=== PATIENT | male | born 1955 | race Caucasian/White ===

== ENCOUNTER 2019-10-07 13:31 | Inpatient (IN) | payer OTHER ==
[2019-10-07] MEDS ORDERED: Lactated Ringers 1,000 ML IV SCH (14:15)
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
[2019-10-07] MEDS ORDERED: LORazepam 2 MG/ML SDV IVPUSH PRN (17:40)
[2019-10-07] MEDS ORDERED: Ondansetron 4 MG/2 ML SDV IV PRN (17:40)
[2019-10-07] MEDS ORDERED: Ondansetron 4 MG Tab.DIS PO PRN (17:40)
[2019-10-07] MEDS: Lactated Ringers 1,000 ML IV SCH ×2 (17:45→22:22)
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
[2019-10-07] MEDS: LORazepam 2 MG/ML SDV IVPUSH PRN (18:00)
[2019-10-07] MEDS ORDERED: Nicotine 21 MG/24 Hr Patch TRDERM ONE (18:11)
[2019-10-07] MEDS: LORazepam 2 MG/ML SDV IVPUSH SCH ×7 (18:42→22:34)
[2019-10-08] MEDS: LORazepam 2 MG/ML SDV IVPUSH SCH ×2 (01:38→05:44)
[2019-10-08] MEDS: Lactated Ringers 1,000 ML IV SCH ×2 (03:24→17:16)
[2019-10-08] MEDS ORDERED: Magnesium Sulfate/Water 4 GM in Premix Bag 1 BAG IV ONE ×2 (07:51→09:30)
[2019-10-08] MEDS ORDERED: Enoxaparin 40 MG/0.4 ML Syringe SUBCUT SCH (09:00)
[2019-10-08] MEDS: LORazepam 2 MG/ML SDV IVPUSH PRN ×4 (09:00→20:48)
[2019-10-08] MEDS ORDERED: Thiamine 1,000 MG, Magnesium Sulfate 4 GM, Folic Acid 1 MG in Dextrose 5%-0.9% NaCl 1,0... IV SCH (09:00)
[2019-10-08] MEDS: Nicotine 21 MG/24 Hr Patch TRDERM SCH (09:28)
[2019-10-08] MEDS ORDERED: LORazepam 2 MG/ML SDV IVPUSH PRN ×2 (12:12→12:13)
[2019-10-08] MEDS: Potassium Chloride 20 MEQ Tab.ER PO SCH ×2 (17:20→20:45)
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
[2019-10-08] MEDS ORDERED: Diazepam 5 MG Tab PO ONE (20:54)
[2019-10-08] MEDS: Acetaminophen 325 MG Tab PO PRN (21:06)
[2019-10-09] MEDS: LORazepam 2 MG/ML SDV IVPUSH PRN ×6 (00:42→23:31)
[2019-10-09] MEDS: Acetaminophen 325 MG Tab PO PRN ×3 (03:19→16:27)
[2019-10-09] MEDS: Lactated Ringers 1,000 ML IV SCH (03:24)
[2019-10-09] MEDS: Nicotine 21 MG/24 Hr Patch TRDERM SCH (09:29)
[2019-10-09] MEDS ORDERED: Diazepam 5 MG Tab PO SCH ×2 (10:49→11:00)
[2019-10-09] MEDS ORDERED: LORazepam 2 MG/ML SDV IVPUSH ONE (12:31)
[2019-10-09] MEDS: Sodium Chloride 3% 500 ML IV SCH (13:26)
[2019-10-09] MEDS ORDERED: Thiamine 1,000 MG, Magnesium Sulfate 4 GM, Folic Acid 1 MG in Dextrose 5%-0.9% NaCl 1,0... IV ONE (14:00)
[2019-10-09] MEDS ORDERED: LORazepam 2 MG/ML SDV IVPUSH PRN (15:34)
[2019-10-09] MEDS: LORazepam 2 MG/ML SDV IV SCH ×3 (16:09→20:49)
[2019-10-09] MEDS ORDERED: Acetaminophen 650 MG Supp ONE (23:42)
[2019-10-09] MEDS: Acetaminophen 650 MG Supp RECTAL PRN (23:45)
[2019-10-10] MEDS ORDERED: Sodium Chloride 0.9% 1,000 ML IV ONE (00:30)
[2019-10-10] MEDS ORDERED: Piperacillin/Tazobactam 4.5 GM in Sodium Chloride 0.9% 100 ML IV ONE (00:45)
[2019-10-10] MEDS: LORazepam 2 MG/ML SDV IVPUSH PRN ×2 (00:48→02:31)
[2019-10-10] MEDS ORDERED: Sodium Chloride 0.9% 1,000 ML IV SCH (01:30)
[2019-10-10] MEDS ORDERED: Sodium Chloride 0.9% 250 ML ONE (02:52)
[2019-10-10] MEDS ORDERED: Sodium Chloride 0.9% 50 ML ONE (02:52)
[2019-10-10] MEDS ORDERED: Etomidate 2 MG/ML 20 ML SDV IVPUSH ONE (03:00)
[2019-10-10] MEDS ORDERED: fentaNYL 2,500 MCG in Sodium Chloride 0.9% 200 ML IV SCH ×2 (03:00)
[2019-10-10] MEDS ORDERED: Midazolam 1 MG/ML 5 ML SDV ONE ×2 (03:00)
[2019-10-10] MEDS ORDERED: Succinylcholine 200 MG/10 ML MDV ONE (03:00)
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
[2019-10-10] MEDS: Midazolam 50 MG in Sodium Chloride 0.9% 40 ML IV SCH ×3 (03:24→14:29)
--- NOTE | 2019-10-10 03:25 | PCM.PRNOTE ---
- Free Text/Narrative Note: Endotracheal Intubation Date: 10/10/2019 Time: 02:56 Indication: Maintain airway in sedated patient Attending: So Benavidez MD A time-out was completed verifying correct patient, procedure, site, positioning , and special equipment if applicable. The patient was placed in a flat position. Sedation was obtained using Etomidate 20mg, and additionally with Succinylcholine 50mg. The patient was easily ventilated using an ambu bag. The MAC 4 BLADE was used and inserted into the oropharynx at which time there was a Grade 1 view of the vocal cords. A 7-persian endotracheal tube was inserted and visualized going through the vocal cords. The stylette was removed. Colorimetric change was visualized on the CO2 meter. Breath sounds were heard in both lung knight equally. The endotracheal tube was placed at 23 cm, measured at the teeth. A chest x-ray was ordered to assess for pneumothorax and verify endotracheal tube placement. Estimated Blood Loss: none The patient tolerated the procedure well and there were no complications.
[2019-10-10] MEDS ORDERED: fentaNYL 100 MCG/2 ML SDV ONE (03:41)
[2019-10-10] MEDS ORDERED: fentaNYL 100 MCG/2 ML SDV IVPUSH ONE (03:41)
[2019-10-10] MEDS: fentaNYL 2,500 MCG in Sodium Chloride 0.9% 200 ML IV SCH (04:33)
[2019-10-10] MEDS: Sodium Chloride 3% 500 ML IV SCH (07:04)
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
[2019-10-10] MEDS: Acetaminophen 650 MG Supp RECTAL PRN ×2 (07:21→14:19)
--- NOTE | 2019-10-10 08:29 | CR ---
Chest: Portable supine view of the chest was obtained. Comparison: No prior chest imaging is available. Focal density is noted within the right upper hilar region measuring 4.7 cm. Left lung is clear. Mild areas of atelectasis and scarring are seen within the right lung. Heart size and mediastinum are within normal limits for portable technique. Tip of endotracheal tube is satisfactory at the lower level of the clavicles. Nasogastric tube appears to be coiled within the hypopharynx. Impression: 1. Coiling of presumed nasogastric tube within the hypopharynx. Please correlate if NG tube has been placed. 2. Tip of endotracheal tube at the lower level of the clavicles in satisfactory position. 3. Difficult to exclude mass within the superior right hilar region. Chest CT recommended which should include contrast if patient's renal function is satisfactory. Diagnostic code #9 This report was dictated in [place] Standard Time I agree with preliminary report from [facility], finalized on 10/10/19, 4:56 AM Central Time
[2019-10-10] MEDS: Nicotine 21 MG/24 Hr Patch TRDERM SCH (09:25)
[2019-10-10] MEDS: Potassium Chloride 10 MEQ in Premix Bag 1 BAG IV SCH ×6 (09:26→15:33)
[2019-10-10] MEDS: Sodium Chloride 0.9% 1,000 ML IV SCH ×4 (09:27→23:27)
[2019-10-10] MEDS: Piperacillin/Tazobactam 4.5 GM in Sodium Chloride 0.9% 100 ML IV SCH ×2 (09:27→17:44)
[2019-10-10] MEDS: 50% Dextrose in Water 50 ML Syringe IVPUSH PRN (12:34)
[2019-10-10] MEDS: Pantoprazole 40 MG Vial IVPUSH SCH (17:42)
[2019-10-10] MEDS ORDERED: Magnesium Sulfate/Water 4 GM in Premix Bag 1 BAG IV ONE (18:22)
[2019-10-10] MEDS ORDERED: Potassium Phosphates 30 MMOLE in Sodium Chloride 0.9% 500 ML IV SCH (18:30)
[2019-10-10] MEDS ORDERED: Sodium Phosphate 30 MMOLE in Sodium Chloride 0.9% 250 ML IV ONE (18:45)
[2019-10-11] MEDS: 50% Dextrose in Water 50 ML Syringe IVPUSH PRN ×2 (00:28→23:12)
[2019-10-11] MEDS: Piperacillin/Tazobactam 4.5 GM in Sodium Chloride 0.9% 100 ML IV SCH ×3 (00:32→17:21)
[2019-10-11] MEDS: Midazolam 50 MG in Sodium Chloride 0.9% 40 ML IV SCH ×3 (00:42→16:34)
[2019-10-11] MEDS: LORazepam 2 MG/ML SDV IV SCH (03:47)
[2019-10-11] MEDS: Acetaminophen 650 MG Supp RECTAL PRN (04:08)
[2019-10-11] MEDS: Sodium Chloride 0.9% 1,000 ML IV SCH ×4 (04:26→19:38)
[2019-10-11] MEDS ORDERED: PHENobarbital Sodium 65 MG/ML SDV IVPUSH ONE (06:18)
[2019-10-11] MEDS ORDERED: Sodium Chloride 0.9% 1,000 ML IV ONE ×2 (07:08→09:37)
[2019-10-11] MEDS ORDERED: PHENOBARBITAL SODIUM IV ONE (08:30)
[2019-10-11] MEDS ORDERED: SODIUM CHLORIDE 0.9% IV ONE (08:30)
[2019-10-11] MEDS: Folic Acid 50 MG/10 ML MDV SUBCUT SCH (08:38)
[2019-10-11] MEDS: Thiamine 200 MG/2 ML MDV IVPUSH SCH (08:42)
[2019-10-11] MEDS: Nicotine 21 MG/24 Hr Patch TRDERM SCH (08:44)
[2019-10-11] MEDS: Pantoprazole 40 MG Vial IVPUSH SCH (08:49)
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
[2019-10-11] MEDS ORDERED: Sodium Phosphate 30 MMOLE in Sodium Chloride 0.9% 250 ML IV ONE ×2 (13:00→16:00)
[2019-10-11] MEDS: Potassium Chloride 10 MEQ in Premix Bag 1 BAG IV SCH ×5 (13:27→17:39)
[2019-10-11] MEDS: fentaNYL 2,500 MCG in Sodium Chloride 0.9% 200 ML IV SCH (15:37)
[2019-10-12] MEDS: Midazolam 50 MG in Sodium Chloride 0.9% 40 ML IV SCH ×5 (00:05→22:37)
[2019-10-12] MEDS: Piperacillin/Tazobactam 4.5 GM in Sodium Chloride 0.9% 100 ML IV SCH ×3 (00:09→16:53)
[2019-10-12] MEDS: Sodium Chloride 0.9% 1,000 ML IV SCH ×3 (00:10→09:46)
[2019-10-12] MEDS: Folic Acid 50 MG/10 ML MDV SUBCUT SCH (08:23)
[2019-10-12] MEDS: Nicotine 21 MG/24 Hr Patch TRDERM SCH (08:23)
[2019-10-12] MEDS: Pantoprazole 40 MG Vial IVPUSH SCH (08:23)
[2019-10-12] MEDS: Thiamine 200 MG/2 ML MDV IVPUSH SCH (08:23)
[2019-10-12] MEDS: LORazepam 2 MG/ML SDV IVPUSH PRN (08:24)
[2019-10-12] MEDS ORDERED: PHENobarbital 20 MG/5 ML Elixir ML (473 ML Bottle) PO SCH (09:00)
--- NOTE | 2019-10-12 09:31 | CR ---
Chest: Portable view of the chest was obtained. Comparison: Prior chest x-ray of 10/10/19. Tip of endotracheal tube lies slightly below the inferior clavicles in satisfactory position. Nasogastric tube is seen with tip lying within the stomach. Increased density within the right midlung is seen which is felt to be fairly stable from prior study when allowing for differences in expiration. Lung markings are diffusely increased on the left side and uncertain if current findings are due to worsening bronchitis, pulmonary vasculature or fluid overload. Heart size at the upper limits of normal. Impression: 1. Increasing left-sided perihilar markings. Differential as noted above. 2. Satisfactory position of endotracheal tube. Tip of nasogastric tube within the stomach. 3. Stable findings within the right chest when allowing for differences in inspiration. Diagnostic code #3 This report was dictated in [place] Standard Time
[2019-10-12] MEDS: fentaNYL 2,500 MCG in Sodium Chloride 0.9% 200 ML IV SCH (12:15)
[2019-10-12] MEDS: levETIRAcetam 500 MG in Sodium Chloride 0.9% 100 ML IV SCH (12:30)
[2019-10-12] MEDS ORDERED: Sodium Chloride 0.9% 1,000 ML IV ONE (12:35)
[2019-10-12] MEDS ORDERED: Sodium Chloride 0.9% 1,000 ML IV SCH (13:00)
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
[2019-10-12] MEDS: Dextrose 5%-0.9% NaCl 1,000 ML IV SCH (14:10)
[2019-10-13] MEDS: levETIRAcetam 500 MG in Sodium Chloride 0.9% 100 ML IV SCH ×2 (00:27→13:07)
[2019-10-13] MEDS: Piperacillin/Tazobactam 4.5 GM in Sodium Chloride 0.9% 100 ML IV SCH ×3 (00:55→17:29)
[2019-10-13] MEDS: Midazolam 50 MG in Sodium Chloride 0.9% 40 ML IV SCH ×2 (02:18→08:41)
[2019-10-13] MEDS: Dextrose 5%-0.9% NaCl 1,000 ML IV SCH (03:42)
[2019-10-13] MEDS: fentaNYL 2,500 MCG in Sodium Chloride 0.9% 200 ML IV SCH (06:46)
[2019-10-13] MEDS ORDERED: Magnesium Sulfate/Water 4 GM in Premix Bag 1 BAG IV SCH (07:30)
[2019-10-13] MEDS ORDERED: Potassium Phosphates 30 MMOLE in Sodium Chloride 0.9% 500 ML IV ONE (08:00)
[2019-10-13] MEDS: Pantoprazole 40 MG Vial IVPUSH SCH (08:23)
[2019-10-13] MEDS: Nicotine 21 MG/24 Hr Patch TRDERM SCH (08:23)
[2019-10-13] MEDS: Thiamine 200 MG/2 ML MDV IVPUSH SCH (08:23)
[2019-10-13] MEDS: Folic Acid 50 MG/10 ML MDV SUBCUT SCH (08:23)
--- NOTE | 2019-10-13 12:07 | CR ---
Chest: Frontal view of the chest was obtained utilizing portable technique. Comparison: Prior chest x-ray of 10/12/19. Findings within the chest appear fairly stable from previous exam. No appreciable change is seen. Satisfactory and stable position of nasogastric tube and endotracheal tube. Impression: 1. Stable chest x-ray from previous exam performed one day earlier. Diagnostic code #3 Study was dictated in [place] Standard Time
[2019-10-13] MEDS ORDERED: Magnesium Sulfate/Water 4 GM in Premix Bag 1 BAG IV ONE (14:00)
[2019-10-13] MEDS ORDERED: Furosemide 40 MG/4 ML VIAL IVPUSH ONE (17:30)
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
[2019-10-13] MEDS ORDERED: propofoL 100 ML IV SCH (17:45)
--- NOTE | 2019-10-13 20:27 | PCM.SN ---
- Free Text/Narrative Note: Called by nursing secondary to patient being accidentally extubated. Fortunately, patient is doing well post extubation. Patient is on 6 L nasal cannula with SPO2 of 96%. Post extubation ABG: pH 7.48, PCO2 43.3, PO2 83.0, HCO3 31.7. Respiratory rate of 17. Continue monitoring closely.
[2019-10-13] MEDS ORDERED: Metoprolol Tartrate 5 MG/5 ML SDV IVPUSH PRN (21:15)
[2019-10-13] MEDS ORDERED: Magnesium Sulfate/Water 2 GM in Premix Bag 1 BAG IV ONE (21:21)
[2019-10-14] MEDS: levETIRAcetam 500 MG in Sodium Chloride 0.9% 100 ML IV SCH ×2 (00:32→14:35)
[2019-10-14] MEDS: Piperacillin/Tazobactam 4.5 GM in Sodium Chloride 0.9% 100 ML IV SCH ×3 (01:01→17:05)
[2019-10-14] MEDS ORDERED: Potassium Phosphates 30 MMOLE in Sodium Chloride 0.9% 500 ML IV ONE (08:30)
[2019-10-14] MEDS: Folic Acid 50 MG/10 ML MDV SUBCUT SCH (08:55)
[2019-10-14] MEDS: Thiamine 200 MG/2 ML MDV IVPUSH SCH (08:56)
[2019-10-14] MEDS: Pantoprazole 40 MG Vial IVPUSH SCH (08:56)
[2019-10-14] MEDS: Nicotine 21 MG/24 Hr Patch TRDERM SCH (08:57)
--- NOTE | 2019-10-14 11:55 | CR ---
Chest: Portable view of the chest was obtained. Comparison: Prior chest x-ray of 10/13/19. Focal parenchymal density noted within the right midlung. Left lung is clear. Heart size and mediastinum are normal. Nasogastric tube remains. Endotracheal tube has been removed. Impression: 1. Focal density within the right midlung. Uncertain if this represents mass or represents persistent pneumonia or pleural thickening. Consider chest CT to further evaluate. 2. Removal of endotracheal tube. 3. Nasogastric tube remains. Diagnostic code #3 This report was dictated in [place] Standard Time
[2019-10-14] MEDS: Potassium Chloride 10 MEQ in Premix Bag 1 BAG IV SCH ×4 (13:04→16:14)
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
[2019-10-14] MEDS ORDERED: Sodium Phosphate 30 MMOLE in Sodium Chloride 0.9% 250 ML IV ONE (16:00)
[2019-10-14] MEDS ORDERED: Metoprolol Tartrate 5 MG/5 ML SDV IVPUSH ONE (16:05)
[2019-10-14] MEDS ORDERED: Metoprolol Tartrate 5 MG in Sodium Chloride 0.9% 50 ML IV PRN (20:15)
[2019-10-14] MEDS ORDERED: Metoprolol Tartrate 5 MG/5 ML SDV IVPUSH PRN (20:17)
[2019-10-14] MEDS: Acetaminophen 650 MG Supp RECTAL PRN (20:54)
[2019-10-15] MEDS: levETIRAcetam 500 MG in Sodium Chloride 0.9% 100 ML IV SCH (00:41)
[2019-10-15] MEDS: Piperacillin/Tazobactam 4.5 GM in Sodium Chloride 0.9% 100 ML IV SCH ×3 (00:58→16:57)
[2019-10-15] MEDS ORDERED: Magnesium Sulfate/Water 4 GM in Premix Bag 1 BAG IV ONE (08:16)
[2019-10-15] MEDS: Potassium Chloride 10 MEQ in Premix Bag 1 BAG IV SCH ×4 (08:41→11:51)
[2019-10-15] MEDS: Folic Acid 1 MG Tab PO SCH (08:47)
[2019-10-15] MEDS: Nicotine 21 MG/24 Hr Patch TRDERM SCH (08:48)
[2019-10-15] MEDS: Pantoprazole 40 MG Vial IVPUSH SCH (08:50)
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
[2019-10-15] MEDS: levETIRAcetam 500 MG Tab PO SCH ×2 (11:25→20:17)
--- NOTE | 2019-10-15 12:37 | CT ---
CT chest Technique: Multiple axial sections were obtained from above the lung apices inferiorly through the lung bases. Intravenous contrast was utilized. Comparison: Prior chest x-ray of 10/14/19. Findings: Mass-like density is seen within the posterior right upper lung. Areas of spiculation are seen around this mass. This mass measures 5.1 cm x 4.5 cm. Minimal right sided pleural effusion is seen. Slight areas of atelectasis are noted within the right lung base. Small left-sided pleural effusion is seen. Mediastinum and hilar regions show small lymph nodes believed to be within normal limits at this time. Mild coronary artery calcification is seen. No pericardial thickening is seen. Small portion of the visualized upper abdominal structures show nothing acute. Compressive atelectasis adjacent to the left sided pleural effusion is noted. Emphysematous changes are noted. Impression: 1. Mass within the posterior right upper lung with measurements as noted above. Biopsy will be needed to determine etiology. 2. Minimal right sided pleural effusion with right basilar atelectasis. 3. Small left-sided pleural effusion with adjacent compressive atelectasis. 4. Small mediastinal lymph nodes believed to be within normal limits at this time. 5. Emphysematous change throughout both lungs. Diagnostic code #9 [place] called report to Dr. Kellie Reid at 12:23 on 10/15/2019 This report was dictated in [place] Standard Time
[2019-10-15] MEDS: Sodium Chloride 0.9% 1,000 ML IV SCH (20:16)
[2019-10-15] MEDS: Metoprolol Tartrate 25 MG Tab PO SCH (20:17)
[2019-10-15] MEDS: Thiamine 100 MG Tab PO SCH (20:19)
[2019-10-15] MEDS: Acetaminophen 325 MG Tab PO PRN (20:23)
[2019-10-16] MEDS: Piperacillin/Tazobactam 4.5 GM in Sodium Chloride 0.9% 100 ML IV SCH (00:30)
[2019-10-16] MEDS: Pantoprazole 40 MG Tab.CR PO SCH (06:03)
[2019-10-16] MEDS: Potassium Chloride 20 MEQ Tab.ER PO SCH ×2 (06:03→17:20)
[2019-10-16] MEDS ORDERED: Magnesium Sulfate/Water 4 GM in Premix Bag 1 BAG IV ONE (07:48)
[2019-10-16] MEDS: Nicotine 21 MG/24 Hr Patch TRDERM SCH (08:22)
[2019-10-16] MEDS: levETIRAcetam 500 MG Tab PO SCH ×2 (08:24→20:21)
[2019-10-16] MEDS: Folic Acid 1 MG Tab PO SCH (08:24)
[2019-10-16] MEDS: Metoprolol Tartrate 25 MG Tab PO SCH ×2 (08:24→20:19)
[2019-10-16] MEDS: Sodium Chloride 0.9% 1,000 ML IV SCH ×2 (09:20→20:21)
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
[2019-10-16] MEDS: Thiamine 100 MG Tab PO SCH (20:21)
[2019-10-16] MEDS ORDERED: Loperamide 2 MG Cap PO ONE (20:54)
[2019-10-16] MEDS ORDERED: Metoprolol Tartrate 25 MG Tab PO ONE (20:55)
[2019-10-17] MEDS: Pantoprazole 40 MG Tab.CR PO SCH (05:08)
[2019-10-17] MEDS: Metoprolol Tartrate 50 MG Tab PO SCH ×2 (08:43→20:18)
[2019-10-17] MEDS: levETIRAcetam 500 MG Tab PO SCH ×2 (08:44→20:19)
[2019-10-17] MEDS: Nicotine 21 MG/24 Hr Patch TRDERM SCH (08:44)
[2019-10-17] MEDS: Folic Acid 1 MG Tab PO SCH (08:44)
[2019-10-17] MEDS ORDERED: Magnesium Sulfate/Water 4 GM in Premix Bag 1 BAG IV ONE (08:47)
[2019-10-17] MEDS ORDERED: Magnesium Sulfate/Water 0 ML ONE (09:05)
[2019-10-17] MEDS ORDERED: Sodium Chloride 0.9% 10 ML Syringe FLUSH PRN (10:02)
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
[2019-10-17] MEDS: Acetaminophen 325 MG Tab PO PRN (16:50)
--- NOTE | 2019-10-17 17:49 | CR ---
Chest: Portable view of the chest was obtained. Comparison: Prior chest x-ray of 10/14/[address] of 10/15/19. Right sided mass is again noted. Lungs are hyperinflated. Slight areas of atelectasis are stable. Blunting of the lateral left costophrenic angle is seen compatible with pleural effusion. Heart size and mediastinum are otherwise normal. Impression: 1. Right upper lobe mass. Other findings as noted above. 2. Nothing acute is definitely appreciated. Diagnostic code #9 Study was dictated in [place] [employer] [place]
[2019-10-17] MEDS: Thiamine 100 MG Tab PO SCH (20:19)
[2019-10-17] MEDS: traZODone 50 MG Tab PO PRN (23:16)
[2019-10-18] MEDS: Pantoprazole 40 MG Tab.CR PO SCH (06:16)
[2019-10-18] MEDS: Folic Acid 1 MG Tab PO SCH (08:05)
[2019-10-18] MEDS: Nicotine 21 MG/24 Hr Patch TRDERM SCH (08:06)
[2019-10-18] MEDS: levETIRAcetam 500 MG Tab PO SCH ×2 (08:06→20:20)
[2019-10-18] MEDS: Metoprolol Succinate 50 MG Tab.ER PO SCH (09:20)
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
[2019-10-18] MEDS: traZODone 50 MG Tab PO PRN (20:20)
[2019-10-18] MEDS: Thiamine 100 MG Tab PO SCH (20:20)
[2019-10-19] MEDS ORDERED: Sodium Chloride 0.9% 1,000 ML IV ONE (04:00)
[2019-10-19] MEDS: Pantoprazole 40 MG Tab.CR PO SCH (05:11)
[2019-10-19] MEDS: Sodium Chloride 0.9% 1,000 ML IV SCH ×2 (05:20→11:03)
[2019-10-19] MEDS ORDERED: Iopamidol 755 Mg/ML 100 ML Bottle IVPUSH ONE (06:01)
[2019-10-19] MEDS ORDERED: Sodium Chloride 0.9% 100 ML IV SCH (06:15)
--- NOTE | 2019-10-19 07:02 | CT ---
CT chest Technique: Multiple axial sections through the chest were obtained. Intravenous contrast was utilized. Study has been performed as a pulmonary angiogram protocol. Comparison: Prior chest CT study of 10/19/19. Findings: Filling defects are noted within the distal left main pulmonary artery, segmental and subsegmental branches of the left lower lung compatible with pulmonary emboli. No right-sided pulmonary embolism is appreciated. Aorta shows no aneurysm. Ascending aorta is mildly ectatic with AP dimension of 3.5 cm. Mediastinum and hilar region show no adenopathy. Masslike density is noted within the superior segment of the right lower lung with spiculated margins compatible with neoplasm. This measures about 5.6 cm x 4.0 cm. On prior study in similar measurement planes measures about 5.7 cm x 3.8 cm. More inferiorly there is more consolidating parenchymal density most likely due to obstructive atelectasis. Small left-sided pleural effusion is seen which has diminished in size from previous exam. No other acute parenchymal change is seen. Bone window settings were reviewed. No acute osseous finding is appreciated. Old left-sided rib fractures which appear healed are seen. Impression: 1. Left-sided pulmonary emboli within the left main as well as within the left lower lobe segmental and subsegmental branches. 2. Stable mass within the right lung base which is felt compatible with neoplasm. 3. Small left-sided pleural effusion decreased in amount from previous exam. 4. Areas of postobstructive atelectasis within the right lung base inferior to the right lung mass. This is stable from previous exam. 5. Emphysematous change. 6. No other acute finding is seen. Diagnostic code #5 This report was dictated in [place] Standard Time
[2019-10-19] MEDS ORDERED: Heparin Sodium 5,000 Units/ML Vial IVPUSH ONE ×2 (08:00→15:45)
[2019-10-19] MEDS ORDERED: Heparin Sodium/D5W 25,000 UNITS/500 ML BAG IV SCH (08:00)
[2019-10-19] MEDS ORDERED: Sodium Chloride 0.9% 500 ML IV ONE (08:54)
[2019-10-19] MEDS: levETIRAcetam 500 MG Tab PO SCH ×2 (09:21→20:22)
[2019-10-19] MEDS: Folic Acid 1 MG Tab PO SCH (09:21)
[2019-10-19] MEDS: Nicotine 21 MG/24 Hr Patch TRDERM SCH (09:21)
[2019-10-19] MEDS: Metoprolol Succinate 50 MG Tab.ER PO SCH (09:22)
[2019-10-19] MEDS ORDERED: Sodium Chloride 0.9% 1,000 ML IV SCH (11:15)
[2019-10-19] MEDS ORDERED: Magnesium Sulfate/Water 4 GM in Premix Bag 1 BAG IV ONE (11:30)
--- NOTE | 2019-10-19 13:33 | US ---
Bilateral lower extremity deep venous ultrasound: Duplex and color Doppler evaluation was obtained of the right and left common femoral, proximal greater saphenous, superficial femoral, popliteal, posterior tibial peroneal veins. Partially occluding clot is noted within the left common femoral vein. Greater saphenous vein on the left side shows diffuse occluding thrombus. Other vein show normal phasic flow, augmentation and compression. Impression: 1. Partial occluding clot within the left common femoral vein as well as diffuse occluding clot within the left greater saphenous vein. 2. No other findings of deep venous thrombosis. Diagnostic code #5 Pin Ticket Machine Operator called report to Dr. Kellie Reid at 1:15 on 10/19/2019 This report was dictated in [place] [employer]
--- NOTE | 2019-10-19 15:19 | US ---
Retroperitoneal ultrasound: Doppler evaluation was obtained of the iliac veins on both sides of the pelvis. Both iliac veins appear to be patent. No extension of any clot is seen into the iliac veins. Impression: 1. Patent iliac veins on both sides. Diagnostic code #1 Study was dictated in [place] [employer]
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
--- NOTE | 2019-10-19 16:47 | CONS ---
CONSULTING PHYSICIAN: Camron Lopes MD DATE OF CONSULTATION: 10/19/2019 Site where the services are provided is [facility] in [place], [place]. Site where services are provided from our offices in [facility]. Length of service for this 60-minute inpatient telemedicine event is 60 minutes. IDENTIFICATION: The patient is a 64-year-old male, who was admitted to the inpatient MICU at [facility]. He is seen for psychiatric consultation per the request of staff attending, Dr. Zacarias, and his treatment team. CHIEF COMPLAINT: "Having some kidney problems." HISTORY OF PRESENT ILLNESS: The patient is a 64-year-old male who is admitted to the inpatient MICU at [facility] on 10/07/2019 after a welfare check to the patient's house revealed that the patient was lying unconscious on the floor in his urine and feces. The patient was brought to the emergency room and subsequently admitted for signs and symptoms of possible alcohol withdrawal. Evidently, the patient has about 40 years of heavy drinking and most recently has been drinking 20 beers a day regularly for the past 25 years. The patient is being treated for withdrawals now and is starting to improve. In his estimation, he is stating "I feel pretty good" today. He states that he is sleeping well and he denies any problems with depression or suicidal or homicidal ideation or any issues with psychotic, delusional, or paranoid symptoms. The patient is not oriented when asked the day of the week. He feels that it is June 27 and is not sure of the year either. He is oriented to person and place, however. Staff is reporting that the patient has a longstanding history of drinking with very little sobriety in between and that he had to be intubated on admission due to his physically compromised status at that time. MEDICATIONS AT THE TIME OF ADMISSION: None. Since being on the unit, the patient has been receiving Keppra b.i.d. for seizure prophylaxis. ALLERGIES: No known drug allergies. PAST MEDICAL HISTORY: Significant for alcohol-related issues. REVIEW OF SYSTEMS: Aside from neuro, GI, genitourinary, pulmonary, cardiac, all other major organ systems are negative at this point in time for acute difficulties or complications. FAMILY PSYCHIATRIC AND CD HISTORY: None reported. PAST PSYCHIATRIC AND CT HISTORY: None reported. SOCIAL HISTORY: The patient states he was born in [place], [place], but he states he has been living in [place] for about the past 10 years and he states he has been living with a roommate. He denies that he is . He denies he has children, but staff are reporting that he has a son who has been coming by and looking after the patient. The patient states he used to work in the [employer]. MENTAL STATUS EXAM: The patient is a 64-year-old white male, in no apparent distress. Speech is of regular rate and rhythm, but somewhat garbled and hard to understand at times throughout the interview. There is no abnormal motor movements or tics observed. Gait and station are not observed as the patient is lying in bed. During the course of the consult, the patient is alert and oriented x2 to person and place, but not to date, thinking it is 06/27. Mood is "pretty good." Affect is cooperative overall for the purposes of the inpatient consult. There is no behavioral or stated evidence of acute suicidal or homicidal ideation or acute psychotic or paranoid symptoms. Thought processes are significant for cognitive deficits. There is no acute manic symptoms or loose associations evident. Judgment and insight do appear impaired at this point in time. Motivation for help appears poor. VITALS AT THE TIME OF ADMISSION: 100/64, 117, 24, 98.8 degrees. IMPRESSION: [place] I: 1. Alcohol dependence, F10.20. 2. 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 [place] II: None. [place] III: Signs and symptoms and complications from alcohol withdrawal and dependence. [place] IV: Severe. [place] V: 50-55. PLAN: 1. I would continue current recovery program as dictated by the inpatient medical treatment team. 2. Recommend folic acid supplementation 1 mg daily. 3. Recommend thiamine supplementation 100 mg daily if not already done. 4. Ativan per CIWA protocol. 5. Recommend that when the patient is medically stabilized that he be transferred to a structured living situation such as a [facility] as he does not appear to be capable of caring for himself at this point in time. 6. Would have the patient follow up with Outpatient Psychiatry when he is discharged to a structured living environment to make sure that any psychiatric needs are being addressed. 7. Sobriety. 8. We will continue to follow up with the patient on an as-needed basis while he remains on the inpatient Med/Surg in his [facility] after being [facility] the [facility]. 9. We will follow up with the patient sooner if any complications in the interim. 10.Crisis plan is in place. LUIS /[id number]
[2019-10-19] MEDS: Acetaminophen 325 MG Tab PO PRN ×2 (17:16→22:26)
[2019-10-19] MEDS: Enoxaparin 60 MG/0.6 ML Syringe SUBCUT SCH (20:20)
[2019-10-19] MEDS: traZODone 50 MG Tab PO PRN (20:22)
[2019-10-19] MEDS: Thiamine 100 MG Tab PO SCH (20:22)
[2019-10-20] MEDS: D5 1/2 NS w/ 20 mEq/L KCl 1,000 ML IV SCH ×2 (00:32→11:55)
[2019-10-20] MEDS: Acetaminophen 325 MG Tab PO PRN ×2 (03:03→10:20)
[2019-10-20] MEDS: Pantoprazole 40 MG Tab.CR PO SCH (06:38)
[2019-10-20] MEDS: Folic Acid 1 MG Tab PO SCH (10:10)
[2019-10-20] MEDS: levETIRAcetam 500 MG Tab PO SCH (10:10)
[2019-10-20] MEDS: Metoprolol Succinate 50 MG Tab.ER PO SCH (10:11)
[2019-10-20] MEDS: Enoxaparin 60 MG/0.6 ML Syringe SUBCUT SCH (10:23)
[2019-10-20] MEDS: Nicotine 21 MG/24 Hr Patch TRDERM SCH (10:24)
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
== END 2019-10-20 15:19 | DRG 896 ==
LOC: JD.ED 13:31 → EEVIPCON 16:49 → JD.ICU 16:49 → JD.MS 10-16 21:37
PROVIDERS: ADMIT Internal Medicine; ATTEND Internal Medicine
PROC: 0BH17EZ Insertion of Endotracheal Airway into Trachea, Via Natural or Artificial Opening (ICD-10-PCS; principal; 2019-10-10)
PROC: 5A1955Z Respiratory Ventilation, Greater than 96 Consecutive Hours (ICD-10-PCS; 2019-10-10)
DX: F10.231 Alcohol dependence with withdrawal delirium (principal); I26.99 Other pulmonary embolism without acute cor pulmonale; T74.11XA Adult physical abuse, confirmed, initial encounter; I82.4Z2 Acute embolism and thrombosis of unspecified deep veins of left distal lower extremity; J98.11 Atelectasis; J90 Pleural effusion, not elsewhere classified; E87.1 Hypo-osmolality and hyponatremia; E87.6 Hypokalemia; F17.210 Nicotine dependence, cigarettes, uncomplicated; F10.229 Alcohol dependence with intoxication, unspecified; D53.9 Nutritional anemia, unspecified; D69.6 Thrombocytopenia, unspecified; E83.42 Hypomagnesemia; E83.39 Other disorders of phosphorus metabolism; E88.09 Other disorders of plasma-protein metabolism, not elsewhere classified; S05.12XA Contusion of eyeball and orbital tissues, left eye, initial encounter; I95.9 Hypotension, unspecified; R00.0 Tachycardia, unspecified; J43.9 Emphysema, unspecified; R91.8 Other nonspecific abnormal finding of lung field; R56.9 Unspecified convulsions; Y90.0 Blood alcohol level of less than 20 mg/100 ml; Z99.81 Dependence on supplemental oxygen
CPT/HCPCS: 31500; 36415; 36600; 51702; 71045; 71045-26; 71260; 71260-26; 71275; 71275-26; 76775; 76775-26; 80048; 80053; 80306; 81001; 81003; 82436; 82570; 82803; 82962; 83605; 83735; 83880; 84100; 84105; 84133; 84300; 84484; 85025; 85379; 85730; 87040; 87070; 87205; 92526-GN; 92610-GN; 93005; 93010; 93306; 93970; 93970-26; 94002; 94003; 94667; 95816; 96360; 97110-GO; 97110-GP; 97162-GP; 97165-GO; 97530-GO; 97530-GP; 97535-GO; 99222; 99231; 99232; 99239; 99285; 99285-25; A9270-GY; C9113; G0480; J0330; J1644; J1650; J1940; J1953; J2060; J2250; J2405; J2543; J2560; J2704; J3010; J3360; J3411; J3475; J3480; J3490; J7030; J7040; J7042; J7050; J7120; Q3014; Q9967

== ENCOUNTER 2022-03-22 13:34 | Day surgery (SDC) | payer MEDICAID, OTHER ==
[~2022-03-22 13:34] MED LIST: Cefuroxime 10 MG/ML SYRINGE EYERT SCH; Lidocaine 1% PF 2 ML SDV INJECT SCH; Pilocarpine 4% Ophth Soln 15 ML Bot EYERT SCH
[2022-03-22] MEDS: Polymyxin B/Trimethoprim 10 ML Bottle EYERT SCH ×3 (13:50→15:48)
[2022-03-22] MEDS: Brimonidine 0.2% Ophth Soln 5 ML Bottle EYERT SCH ×3 (13:55→15:48)
[2022-03-22] MEDS: Phenylephrine 2.5% Ophth Soln 2 ML Bot EYERT SCH ×5 (14:01→15:21)
[2022-03-22] MEDS: Tropicamide 1% Ophth Soln 15 ML Bottle EYERT SCH ×4 (14:05→14:44)
[2022-03-22] MEDS: Tetracaine HCl/PF 0.5% 4 ML Bottle EYEBOTH SCH ×4 (15:01→15:35)
[2022-03-22] MEDS ORDERED: Lidocaine 1% with EPINEPHrine 1:100,000 20 ML MDV ONE (15:05)
== END 2022-03-22 15:58 | disposition home or self-care (01) ==
LOC: JD.SDS 13:34
PROVIDERS: ATTEND Ophthalmology
DX: H25.813 Combined forms of age-related cataract, bilateral (principal); D23.112 Other benign neoplasm of skin of right lower eyelid, including canthus; H02.822 Cysts of right lower eyelid; H02.831 Dermatochalasis of right upper eyelid; H02.834 Dermatochalasis of left upper eyelid; H16.223 Keratoconjunctivitis sicca, not specified as Sjogren's, bilateral; F41.9 Anxiety disorder, unspecified; F17.200 Nicotine dependence, unspecified, uncomplicated; Z79.899 Other long term (current) drug therapy
CPT/HCPCS: 11442; 66984; C1780; J0697

== ENCOUNTER 2022-04-19 07:23 | Day surgery (SDC) | payer MEDICAID ==
[~2022-04-19 07:23] MED LIST changes: +Cefuroxime 10 MG/ML SYRINGE EYELF SCH; -Cefuroxime 10 MG/ML SYRINGE EYERT SCH; +Pilocarpine 4% Ophth Soln 15 ML Bot EYELF SCH; -Pilocarpine 4% Ophth Soln 15 ML Bot EYERT SCH
[2022-04-19] MEDS: Polymyxin B/Trimethoprim 10 ML Bottle EYELF SCH ×3 (07:25→08:45)
[2022-04-19] MEDS: Brimonidine 0.2% Ophth Soln 5 ML Bottle EYELF SCH ×3 (07:30→08:45)
[2022-04-19] MEDS: Phenylephrine 2.5% Ophth Soln 2 ML Bot EYELF SCH ×5 (07:35→08:31)
[2022-04-19] MEDS: Tropicamide 1% Ophth Soln 15 ML Bottle EYELF SCH ×4 (07:40→08:05)
[2022-04-19] MEDS: Tetracaine HCl/PF 0.5% 4 ML Bottle EYEBOTH SCH ×4 (08:09→08:32)
== END 2022-04-19 08:55 | disposition home or self-care (01) ==
LOC: JD.SDS 07:23
PROVIDERS: ATTEND Ophthalmology
DX: H25.812 Combined forms of age-related cataract, left eye (principal); H16.223 Keratoconjunctivitis sicca, not specified as Sjogren's, bilateral; H02.834 Dermatochalasis of left upper eyelid; H02.831 Dermatochalasis of right upper eyelid; H16.103 Unspecified superficial keratitis, bilateral; F41.9 Anxiety disorder, unspecified; K21.9 Gastro-esophageal reflux disease without esophagitis; J44.9 Chronic obstructive pulmonary disease, unspecified; I82.409 Acute embolism and thrombosis of unspecified deep veins of unspecified lower extremity; F17.210 Nicotine dependence, cigarettes, uncomplicated; Z79.51 Long term (current) use of inhaled steroids; Z96.1 Presence of intraocular lens; Z79.01 Long term (current) use of anticoagulants; Z98.890 Other specified postprocedural states; Z79.899 Other long term (current) drug therapy
CPT/HCPCS: 66984; J0697; C1780

== ENCOUNTER 2023-07-19 15:45 | Inpatient (IN) | payer MEDICARE, OTHER ==
[2023-07-19] MEDS ORDERED: Sodium Chloride 0.9% 10 ML Syringe FLUSH PRN (16:08)
[2023-07-19 16:19] LABS: HEMATOCRIT 45.7 % (42.0-52.0); HEMOGLOBIN 15.2 gm/dl (14.0-18.0); MEAN CORPUSCULAR HEMOGLOBIN 31.3 pg (28.0-32.0); MEAN CORPUSCULAR HGB CONC 33.3 g/dl (32.0-36.0); MEAN CORPUSCULAR VOLUME 94.2 fl (83.0-99.0); MEAN PLATELET VOLUME 10.2 fl (9.4-12.4); PLATELET COUNT,PLT 232 K/mm3 (150-400); RED BLOOD CELL COUNT 4.85 M/mm3 (4.52-5.90); WHITE BLOOD CELL COUNT,WBC 9.19 K/mm3 (3.9-11.3)
[2023-07-19 16:48] LABS: LACTIC ACID 2.1 mmol/L (0.4-2.0)
[2023-07-19 16:49] LABS: ALBUMIN 4.1 g/dl (3.4-5.0); ANION GAP 13.6 (5-15); BILIRUBIN TOTAL 0.7 mg/dL (0.2-1.0); BUN/CREATININE RATIO 17.5 (14-18); C-REACTIVE PROTEIN 1.1 mg/dL (<1.0); CALCIUM 9.6 mg/dL (8.5-10.1); CREATININE 0.8 mg/dL (0.7-1.3); EST CRCL DRUG DOSING (CG) 53.69 mL/min; POTASSIUM,K 4.6 mEq/L (3.5-5.1); PROTEIN TOTAL,TP 8.1 g/dl (6.4-8.2)
[2023-07-19 16:50] LABS: BAND PERCENT MAN 0 % (0-10); BASOPHILS PERCENT MAN 0 (0.2-1.2); EOSINOPHILS PERCENT MAN 0 % (0.8-7.0); LYMPHOCYTES % ATYPICAL MANUAL 0 %; LYMPHOCYTES PERCENT MAN 8 % (20-40); MONOCYTES PERCENT MAN 3 % (2-10); PLATELET COUNT ESTIMATE ADEQUATE
[2023-07-19 16:52] LABS: CORONAVIRUS COVID-19 NAA NEGATIVE (NEGATIVE); INFLUENZA A NAA NEGATIVE (NEGATIVE); RESPIRATORY SYNCYTIAL VIR NAA NEGATIVE (NEGATIVE)
[2023-07-19] MEDS ORDERED: Albuterol/Ipratropium 3.0-0.5 MG/3 ML Neb Soln NEB ONE (16:56)
[2023-07-19 17:18] LABS: PCO2 ARTERIAL 73.8 mmHg (35.0-45.0)
[2023-07-19 17:19] LABS: BICARBONATE,ARTERIAL 32.1 meq/L (22.0-26.0); O2 SATURATION ARTERIAL 99.9 % (96.0-97.0)
[2023-07-19] MEDS ORDERED: Azithromycin 500 MG in Sodium Chloride 0.9% 250 ML IV ONE (18:09)
[2023-07-19] MEDS ORDERED: methylPREDNISolone Sod Succ 125 MG in Sodium Chloride 0.9% 250 ML IV ONE (18:10)
[2023-07-19] MEDS ORDERED: methylPREDNISolone Sodium Succinate 125 MG/2 ML SDV ONE (19:03)
[2023-07-19] MEDS ORDERED: methylPREDNISolone Sodium Succinate 125 MG/2 ML SDV IVPUSH ONE (19:07)
[2023-07-20] MEDS: methylPREDNISolone Sodium Succinate 125 MG/2 ML SDV IVPUSH SCH ×3 (04:42→18:32)
[2023-07-20] MEDS: Heparin Sodium 5,000 Units/ML Vial SUBCUT SCH ×3 (04:42→18:32)
[2023-07-20 05:42] LABS: BASOPHILS PERCENT AUTO 0.2 % (0.0-1.0); HEMATOCRIT 47.3 % (42.0-52.0); HEMOGLOBIN 15.8 gm/dl (14.0-18.0); IMMATURE GRAN ABSOLUTE AUTO 0.03 K/mm3 (0.00-0.05); IMMATURE GRAN PERCENT AUTO 0.5 % (0.0-0.4); LYMPHOCYTES PERCENT AUTO 16.1 % (24.0-44.0); MEAN CORPUSCULAR HEMOGLOBIN 31.9 pg (28.0-32.0); MEAN CORPUSCULAR HGB CONC 33.4 g/dl (32.0-36.0); MEAN CORPUSCULAR VOLUME 95.4 fl (83.0-99.0); MEAN PLATELET VOLUME 10.4 fl (9.4-12.4); MONOCYTES ABSOLUTE AUTO 0.1 K/mm3 (0.0-0.8); MONOCYTES PERCENT AUTO 0.8 % (0.0-8.0); NEUTROPHILS ABSOLUTE AUTO 5.1 K/mm3 (1.8-7.7); NEUTROPHILS PERCENT AUTO 82.4 % (41.0-71.0); PLATELET COUNT,PLT 230 K/mm3 (150-400); RED BLOOD CELL COUNT 4.96 M/mm3 (4.52-5.90); WHITE BLOOD CELL COUNT,WBC 6.16 K/mm3 (3.9-11.3)
[2023-07-20 06:02] LABS: ALBUMIN 3.9 g/dl (3.4-5.0); ANION GAP 12.7 (5-15); BILIRUBIN TOTAL 0.6 mg/dL (0.2-1.0); BUN/CREATININE RATIO 17.5 (14-18); CALCIUM 9.6 mg/dL (8.5-10.1); CREATININE 0.8 mg/dL (0.7-1.3); EST CRCL DRUG DOSING (CG) 50.58 mL/min; MAGNESIUM 1.7 mg/dL (1.8-2.4); POTASSIUM,K 4.7 mEq/L (3.5-5.1)
[2023-07-20] MEDS: Nicotine 21 MG/24 Hr Patch TRDERM SCH (09:06)
[2023-07-20 14:17] LABS: APPEARANCE,URINE CLEAR (Clear); BILIRUBIN,URINE NEGATIVE (Negative); COLOR,URINE YELLOW (Yellow); GLUCOSE,URINE NEGATIVE (Negative); KETONES,URINE 1+ (Negative); LEUKOCYTE ESTERASE,URINE NEGATIVE (Negative); NITRITE,URINE NEGATIVE (Negative); OCCULT BLOOD,URINE NEGATIVE (Negative); PROTEIN,URINE TRACE (Negative); UROBILINOGEN,URINE 0.2 (0.2-1.0)
[2023-07-20 14:46] LABS: EPITHELIAL CELLS,URINE 0-5 /hpf (0-5); RBC,URINE 0-5 /hpf (0-5); WBC,URINE 0-5 /hpf (0-5)
[2023-07-20 14:47] LABS: BACTERIA,URINE MODERATE /hpf (FEW); MUCUS,URINE MANY /hpf (FEW)
[2023-07-20] MEDS: Azithromycin 500 MG in Sodium Chloride 0.9% 250 ML IV SCH (17:07)
[2023-07-20] MEDS: Citalopram 20 MG Tab PO SCH (20:39)
[2023-07-20] MEDS: traZODone 50 MG Tab PO SCH (20:39)
[2023-07-21] MEDS: methylPREDNISolone Sodium Succinate 125 MG/2 ML SDV IVPUSH SCH ×4 (04:15→20:13)
[2023-07-21 05:23] LABS: BASOPHILS PERCENT AUTO 0.1 % (0.0-1.0); HEMATOCRIT 40.8 % (42.0-52.0); IMMATURE GRAN ABSOLUTE AUTO 0.12 K/mm3 (0.00-0.05); IMMATURE GRAN PERCENT AUTO 0.5 % (0.0-0.4); LYMPHOCYTES ABSOLUTE AUTO 0.8 K/mm3 (1.0-4.8); LYMPHOCYTES PERCENT AUTO 3.2 % (24.0-44.0); MEAN CORPUSCULAR HGB CONC 33.1 g/dl (32.0-36.0); MEAN CORPUSCULAR VOLUME 93.6 fl (83.0-99.0); MEAN PLATELET VOLUME 10.3 fl (9.4-12.4); MONOCYTES PERCENT AUTO 4.2 % (0.0-8.0); NEUTROPHILS ABSOLUTE AUTO 21.9 K/mm3 (1.8-7.7); PLATELET COUNT,PLT 229 K/mm3 (150-400); RED BLOOD CELL COUNT 4.36 M/mm3 (4.52-5.90); WHITE BLOOD CELL COUNT,WBC 23.79 K/mm3 (3.9-11.3)
[2023-07-21 05:31] LABS: HEMOGLOBIN 13.5 gm/dl (14.0-18.0)
[2023-07-21 05:44] LABS: ALBUMIN 3.5 g/dl (3.4-5.0); ANION GAP 9.3 (5-15); BILIRUBIN TOTAL 0.3 mg/dL (0.2-1.0); BUN/CREATININE RATIO 24.3 (14-18); CALCIUM 9.1 mg/dL (8.5-10.1); CREATININE 0.7 mg/dL (0.7-1.3); EST CRCL DRUG DOSING (CG) 57.8 mL/min; POTASSIUM,K 4.3 mEq/L (3.5-5.1)
[2023-07-21 06:11] LABS: SLIDE REVIEW ABNORMAL SMEAR
[2023-07-21] MEDS: Nicotine 21 MG/24 Hr Patch TRDERM SCH (08:36)
[2023-07-21] MEDS: Rivaroxaban 10 MG Tab PO SCH (08:37)
[2023-07-21] MEDS: Remove Patch *NICOTINE PATCH TRDERM SCH (08:38)
[2023-07-21] MEDS: Azithromycin 500 MG in Sodium Chloride 0.9% 250 ML IV SCH (17:57)
[2023-07-21] MEDS: traZODone 50 MG Tab PO SCH (21:11)
[2023-07-21] MEDS: Citalopram 20 MG Tab PO SCH (21:11)
[2023-07-22] MEDS: methylPREDNISolone Sodium Succinate 125 MG/2 ML SDV IVPUSH SCH (03:39)
[2023-07-22 05:28] LABS: BASOPHILS PERCENT AUTO 0.1 % (0.0-1.0); HEMATOCRIT 37.7 % (42.0-52.0); HEMOGLOBIN 12.4 gm/dl (14.0-18.0); IMMATURE GRAN ABSOLUTE AUTO 0.12 K/mm3 (0.00-0.05); IMMATURE GRAN PERCENT AUTO 0.5 % (0.0-0.4); LYMPHOCYTES ABSOLUTE AUTO 0.5 K/mm3 (1.0-4.8); LYMPHOCYTES PERCENT AUTO 2.4 % (24.0-44.0); MEAN CORPUSCULAR HEMOGLOBIN 31.6 pg (28.0-32.0); MEAN CORPUSCULAR HGB CONC 32.9 g/dl (32.0-36.0); MEAN CORPUSCULAR VOLUME 96.2 fl (83.0-99.0); MONOCYTES ABSOLUTE AUTO 0.8 K/mm3 (0.0-0.8); MONOCYTES PERCENT AUTO 3.5 % (0.0-8.0); NEUTROPHILS PERCENT AUTO 93.5 % (41.0-71.0); PLATELET COUNT,PLT 229 K/mm3 (150-400); RED BLOOD CELL COUNT 3.92 M/mm3 (4.52-5.90); WHITE BLOOD CELL COUNT,WBC 22.43 K/mm3 (3.9-11.3)
[2023-07-22 05:58] LABS: A/G RATIO 0.9 (1-2); ALBUMIN 3.1 g/dl (3.4-5.0); ANION GAP 7.3 (5-15); BILIRUBIN TOTAL 0.2 mg/dL (0.2-1.0); CALCIUM 8.4 mg/dL (8.5-10.1); CREATININE 0.7 mg/dL (0.7-1.3); EST CRCL DRUG DOSING (CG) 58.58 mL/min; POTASSIUM,K 4.3 mEq/L (3.5-5.1); PROTEIN TOTAL,TP 6.5 g/dl (6.4-8.2)
[2023-07-22 06:13] LABS: SLIDE REVIEW ABNORMAL SMEAR
[2023-07-22] MEDS ORDERED: Albuterol/Ipratropium 3.0-0.5 MG/3 ML Neb Soln ONE (08:44)
[2023-07-22] MEDS: Albuterol/Ipratropium 3.0-0.5 MG/3 ML Neb Soln NEB SCH ×3 (08:59→20:28)
[2023-07-22] MEDS: guaiFENesin 600 MG Tab.ER PO SCH ×2 (09:00→21:53)
[2023-07-22] MEDS: Magnesium Oxide 400 MG Tab PO SCH (09:00)
[2023-07-22] MEDS: Folic Acid 1 MG Tab PO SCH (09:00)
[2023-07-22] MEDS: Remove Patch *NICOTINE PATCH TRDERM SCH (09:00)
[2023-07-22] MEDS: Rivaroxaban 10 MG Tab PO SCH (09:00)
[2023-07-22] MEDS: Multivitamin Tab PO SCH (09:00)
[2023-07-22] MEDS: Nicotine 21 MG/24 Hr Patch TRDERM SCH (14:52)
[2023-07-22] MEDS: Azithromycin 500 MG in Sodium Chloride 0.9% 250 ML IV SCH (17:08)
[2023-07-22] MEDS: Citalopram 20 MG Tab PO SCH (21:53)
[2023-07-22] MEDS: traZODone 50 MG Tab PO SCH (21:54)
[2023-07-23 05:26] LABS: BASOPHILS PERCENT AUTO 0.1 % (0.0-1.0); EOSINOPHILS PERCENT AUTO 0.2 % (0.0-6.0); HEMATOCRIT 38.4 % (42.0-52.0); HEMOGLOBIN 12.2 gm/dl (14.0-18.0); IMMATURE GRAN ABSOLUTE AUTO 0.04 K/mm3 (0.00-0.05); IMMATURE GRAN PERCENT AUTO 0.4 % (0.0-0.4); LYMPHOCYTES ABSOLUTE AUTO 1.7 K/mm3 (1.0-4.8); LYMPHOCYTES PERCENT AUTO 14.8 % (24.0-44.0); MEAN CORPUSCULAR HEMOGLOBIN 30.6 pg (28.0-32.0); MEAN CORPUSCULAR HGB CONC 31.8 g/dl (32.0-36.0); MEAN CORPUSCULAR VOLUME 96.2 fl (83.0-99.0); MEAN PLATELET VOLUME 9.9 fl (9.4-12.4); NEUTROPHILS ABSOLUTE AUTO 8.5 K/mm3 (1.8-7.7); NEUTROPHILS PERCENT AUTO 75.5 % (41.0-71.0); PLATELET COUNT,PLT 206 K/mm3 (150-400); RED BLOOD CELL COUNT 3.99 M/mm3 (4.52-5.90); WHITE BLOOD CELL COUNT,WBC 11.29 K/mm3 (3.9-11.3)
[2023-07-23 05:39] LABS: ANION GAP 7.4 (5-15); BUN/CREATININE RATIO 21.4 (14-18); CALCIUM 8.4 mg/dL (8.5-10.1); CREATININE 0.7 mg/dL (0.7-1.3); EST CRCL DRUG DOSING (CG) 58.58 mL/min; MAGNESIUM 1.7 mg/dL (1.8-2.4); POTASSIUM,K 3.4 mEq/L (3.5-5.1)
[2023-07-23] MEDS: Albuterol/Ipratropium 3.0-0.5 MG/3 ML Neb Soln NEB SCH ×2 (06:21→09:34)
[2023-07-23] MEDS ORDERED: predniSONE 20 MG Tab PO SCH (07:00)
[2023-07-23] MEDS ORDERED: Magnesium Sulfate/Water 2 GM in Premix Bag 1 BAG IV ONE (07:56)
[2023-07-23] MEDS ORDERED: Potassium Chloride 20 MEQ Tab.ER PO ONE (07:57)
[2023-07-23] MEDS: Folic Acid 1 MG Tab PO SCH (08:13)
[2023-07-23] MEDS: guaiFENesin 600 MG Tab.ER PO SCH (08:13)
[2023-07-23] MEDS: Rivaroxaban 10 MG Tab PO SCH (08:14)
[2023-07-23] MEDS: Magnesium Oxide 400 MG Tab PO SCH (08:14)
[2023-07-23] MEDS: Multivitamin Tab PO SCH (08:14)
[2023-07-23] MEDS: Remove Patch *NICOTINE PATCH TRDERM SCH (08:27)
[2023-07-23] MEDS: Nicotine 21 MG/24 Hr Patch TRDERM SCH (08:28)
== END 2023-07-23 13:00 | disposition home or self-care (01) | DRG 189 ==
LOC: JD.ED 15:45 → JD.MS 19:19
PROVIDERS: ADMIT Internal Medicine; ATTEND Internal Medicine
PROC: 4A033R1 Measurement of Arterial Saturation, Peripheral, Percutaneous Approach (ICD-10-PCS; principal; 2023-07-19)
DX: J96.21 Acute and chronic respiratory failure with hypoxia (principal); C34.2 Malignant neoplasm of middle lobe, bronchus or lung; J96.22 Acute and chronic respiratory failure with hypercapnia; J44.9 Chronic obstructive pulmonary disease, unspecified; Z66 Do not resuscitate; F17.210 Nicotine dependence, cigarettes, uncomplicated; F41.9 Anxiety disorder, unspecified; E88.A Wasting disease (syndrome) due to underlying condition; J43.9 Emphysema, unspecified; Z79.899 Other long term (current) drug therapy; Z79.01 Long term (current) use of anticoagulants; Z98.49 Cataract extraction status, unspecified eye; Z98.890 Other specified postprocedural states; Z11.52 Encounter for screening for COVID-19; Z95.828 Presence of other vascular implants and grafts; Z86.711 Personal history of pulmonary embolism
CPT/HCPCS: 0241U; 36415; 36600; 71045; 71045-26; 80048; 80053; 81001; 82803; 83605; 83735; 83880; 84484; 85007; 85025; 85027; 85379; 86140; 87086; 93005; 93010; 94640; 94667; 94668; 94761; 96374; 96375; 99284; 99285-25; A9270-GY; J0456; J1642; J1644; J2930; J3475; J7050; J7512; J7620-GY

== ENCOUNTER 2025-03-18 09:31 | Emergency (ER) | payer MEDICAID, OTHER | END 2025-03-18 12:12 | disposition home or self-care (01) | LOC: JD.ED 09:31 | DX: M25.511 Pain in right shoulder (principal); J44.9 Chronic obstructive pulmonary disease, unspecified; Z79.51 Long term (current) use of inhaled steroids; Z79.01 Long term (current) use of anticoagulants; Z79.899 Other long term (current) drug therapy | CPT/HCPCS: 73030-26-RT; 73030-RT; 99283 ==